=== PATIENT | female | born 1985 | race Caucasian/White ===

== ENCOUNTER → 2019-05-25 | Outpatient (CLI) | payer OTHER ==
--- NOTE | 2019-05-25 14:37 | REP ---
MRI cervical spine: 05/25/2019. Indication: Neck pain. Comparison: None. Technique: Multiplanar short and long TR sequences of the cervical spine were obtained without IV Gadolinium. Findings: There is straightening of the cervical lordosis. Disc dessication is present throughout with the relative sparing of C7/T1. No worrisome marrow or cord signal is present. The craniocervical junction is unremarkable. C2/C3: Unremarkable. C3/C4, C4/C5, C5/C6 and C6/C7: Mild diffuse disc bulges are present in each level without significant spinal canal or neural foraminal narrowing. C7/T1: Unremarkable. Impression: Relatively mild degenerative sequelae of the cervical spine as described most pronounced at C3/C4 on the right. Electronically Signed by Rudolph Hancock DO 05/25/2019 02:29 P
== END ==
LOC: M RAD 10:21
PROVIDERS: ATTEND Physician Assistant
DX: M85.88 Other specified disorders of bone density and structure, other site (principal); M50.31 Other cervical disc degeneration, high cervical region; M50.21 Other cervical disc displacement, high cervical region; M50.221 Other cervical disc displacement at C4-C5 level; M50.222 Other cervical disc displacement at C5-C6 level; M50.223 Other cervical disc displacement at C6-C7 level; M50.23 Other cervical disc displacement, cervicothoracic region

== ENCOUNTER → 2020-02-22 | Outpatient (CLI) | payer SELFPAY | LOC: M LABSMTC 09:35 | PROVIDERS: ATTEND Pediatrics | DX: Z11.59 Encounter for screening for other viral diseases (principal) ==